=== PATIENT | female | born 1975 | race Hispanic/Latino ===

== ENCOUNTER 2018-02-01 09:49 | Outpatient (CLI) | payer OTHER ==
--- NOTE | 2018-02-01 13:00 | ULT ---
STANDARD THYROID ULTRASOUND: HISTORY: Thyroid nodule. COMPARISON: None. FINDINGS: The isthmus measures 3 mm in AP dimension. The right lobe measures 5.1 x 1.3 x 1.9 cm. The left lob e measures 4.6 x 2.3 x 2.3 cm. At the inferior right lobe of the thyroid is a solid, isoechoic, wide -than-tall nodule, measuring 1.1 x 0.6 x 0.7 cm. No associated calcifications. The margins are mattie p. This is a TI-RADS 3-Mildly suspicious. Given its small size, no fine needle aspiration or follow up is warranted. In the left lobe of the thyroid is a solid, hypoechoic nodule, measuring 2.5 x 1.8 x 1.7 cm, which is hypoechoic and wider than tall, with lobulated margins, without associated calcifications. This is a TI-RADS 4-Moderately suspicious. Given its large size, fine needle aspiration is recommended. IMPRESSION: Left lobe thyroid nodule is a TI-RADS 4-Moderately suspicious. Given its size, fine needle aspiratio n is recommended. POS: OFF
== END 2018-02-01 09:50 | disposition home or self-care (01) ==
LOC: BICMAMMO 09:49
PROVIDERS: ATTEND Internal Medicine
DX: Z12.31 Encounter for screening mammogram for malignant neoplasm of breast (principal); E04.1 Nontoxic single thyroid nodule
CPT/HCPCS: 76536; 77063; 77067

== ENCOUNTER 2019-02-07 10:08 | Outpatient (CLI) | payer OTHER ==
--- NOTE | 2019-02-07 10:55 | MMO ---
Bilateral MAMMO Bilat Screen [facility]. CLINICAL HISTORY: Patient is 43 years old and is seen for screening. The patient has the following family history of breast cancer: second cousin. The patient has no personal history of cancer. VIEWS: The views performed were: bilateral craniocaudal with tomosynthesis and bilateral mediolateral oblique with tomosynthesis. FILMS COMPARED: The present examination has been compared to a prior imaging study performed at [facility] on 02/01/2018. This study has been interpreted with the assistance of computer-aided detection. MAMMOGRAM FINDINGS: The breasts are extremely dense, which may lower the sensitivity of mammography. There are no suspicious masses, suspicious calcifications, or new areas of architectural distortion. IMPRESSION: THERE IS NO MAMMOGRAPHIC EVIDENCE OF MALIGNANCY. A ROUTINE FOLLOW-UP MAMMOGRAM IN 1 YEAR IS RECOMMENDED. THE RESULTS OF THIS EXAM WERE SENT TO THE PATIENT. ACR BI-RADS Category 1 - Negative MAMMOGRAPHY NOTE: 1. A negative mammogram report should not delay a biopsy if a dominant of clinically suspicious mass is present. 2. Approximately 10% to 15% of breast cancers are not detected by mammography. 3. Adenosis and dense breasts may obscure an underlying neoplasm. Reported by: ALF ESCOBAR MD Electonically Signed: [id number]
== END 2019-02-07 10:09 | disposition home or self-care (01) ==
LOC: BICMAMMO 10:08
PROVIDERS: ATTEND Internal Medicine
DX: Z12.31 Encounter for screening mammogram for malignant neoplasm of breast (principal); Z80.3 Family history of malignant neoplasm of breast
CPT/HCPCS: 77063; 77067

== ENCOUNTER 2020-02-10 09:28 | Outpatient (CLI) | payer OTHER ==
--- NOTE | 2020-02-10 10:02 | MMO ---
Bilateral MAMMO Bilat Screen [facility]. CLINICAL HISTORY: Patient is 44 years old and is seen for screening. The patient has the following family history of breast cancer: second cousin. The patient has no personal history of cancer. VIEWS: The views performed were: bilateral craniocaudal with tomosynthesis and bilateral mediolateral oblique with tomosynthesis. FILMS COMPARED: The present examination has been compared to prior imaging studies performed at [facility] on 02/01/2018 and 02/07/2019. This study has been interpreted with the assistance of computer-aided detection. MAMMOGRAM FINDINGS: The breasts are extremely dense, which may lower the sensitivity of mammography. There are no suspicious masses, suspicious calcifications, or new areas of architectural distortion. IMPRESSION: THERE IS NO MAMMOGRAPHIC EVIDENCE OF MALIGNANCY. A ROUTINE FOLLOW-UP MAMMOGRAM IN 1 YEAR IS RECOMMENDED. THE RESULTS OF THIS EXAM WERE SENT TO THE PATIENT. ACR BI-RADS Category 1 - Negative MAMMOGRAPHY NOTE: 1. A negative mammogram report should not delay a biopsy if a dominant of clinically suspicious mass is present. 2. Approximately 10% to 15% of breast cancers are not detected by mammography. 3. Adenosis and dense breasts may obscure an underlying neoplasm. Reported by: ALF ESCOBAR MD Electonically Signed: [id number]
== END 2020-02-10 09:29 | disposition home or self-care (01) ==
LOC: BICMAMMO 09:28
PROVIDERS: ATTEND Nurse Practitioner Adult Health
DX: Z12.31 Encounter for screening mammogram for malignant neoplasm of breast (principal); Z80.3 Family history of malignant neoplasm of breast
CPT/HCPCS: 77063; 77067

== ENCOUNTER 2021-08-25 09:38 | Outpatient (CLI) | payer OTHER | END 2021-08-25 09:39 | disposition home or self-care (01) | LOC: BICMAMMO 09:38 | PROVIDERS: ATTEND Nurse Practitioner Adult Health | DX: Z13.21 Encounter for screening for nutritional disorder (principal); Z80.3 Family history of malignant neoplasm of breast | CPT/HCPCS: 77063; 77067 ==

== ENCOUNTER 2022-01-31 09:35 | Outpatient (CLI) | payer OTHER | END 2022-01-31 09:36 | disposition home or self-care (01) | LOC: SCSMRI 09:35 | PROVIDERS: ATTEND Psychiatry & Neurology Neurology | DX: G43.109 Migraine with aura, not intractable, without status migrainosus (principal) | CPT/HCPCS: 70551; 72040 ==

== ENCOUNTER 2022-02-17 19:00 | Outpatient (CLI) | payer OTHER | END 2022-02-17 19:01 | disposition home or self-care (01) | LOC: SLEEPLAB 19:00 | PROVIDERS: ATTEND Nurse Practitioner Adult Health | DX: G47.33 Obstructive sleep apnea (adult) (pediatric) (principal); R53.83 Other fatigue; R09.89 Other specified symptoms and signs involving the circulatory and respiratory systems; F32.9 Major depressive disorder, single episode, unspecified; K21.9 Gastro-esophageal reflux disease without esophagitis; R06.83 Snoring; R35.1 Nocturia; I10 Essential (primary) hypertension; G47.10 Hypersomnia, unspecified; G47.00 Insomnia, unspecified; G43.909 Migraine, unspecified, not intractable, without status migrainosus; E66.9 Obesity, unspecified; Z68.30 Body mass index [BMI] 30.0-30.9, adult | CPT/HCPCS: 95810 ==